=== PATIENT | female | born 1955 | race African-American/Black ===

== ENCOUNTER → 2016-11-15 | Emergency (ER) | payer BC, OTHER ==
[~2016-11-15] MED LIST: FAMOTIDINE 20 MG/50 ML IVPB 50 ML IVPB ONE; ONDANSETRON 4 MG/2 ML VIAL IVPUSH ONE; ONDANSETRON 4 MG/2 ML VIAL ONE; SODIUM CHLORIDE 0.9% 1000 ML INFUS.BAG IV ONE
[2016-11-15 02:30] VITALS: BP 132/85; PULSE 75; TEMP 97.5; BMI 31.9
--- NOTE | 2016-11-15 03:14 | PDOC ---
History of Present Illness - General Chief Complaint: Pain, Acute Stated Complaint: DIARRHEA,ABD PAIN Time Seen by Provider: 11/15/16 02:45 - History of Present Illness Initial Comments: 11/15/16 03:13 CHIEF COMPLAINT: vomiting/diarrhea HISTORY OF PRESENT ILLNESS: An-year-old female with history of hypertension and hypothyroidism presents to ED with vomiting and diarrhea since tonight. Patient states that she had 2 slices of pizza this evening and afterward she had multiple episodes of vomiting and at least 3-4 episodes of diarrhea. She denies fever, chills, rectal bleeding. She denies having any abdominal pain right now. She reports that she was recently diagnosed with a gluten allergy. No recent travel or sick contacts. PAST MEDICAL HISTORY: Denies past medical history FAMILY HISTORY: Denies SOCIAL HISTORY: Denies tobacco, alcohol, illicit drug use. SURGICAL HISTORY: Appendectomy, ablation of fibroids, septoplasty, glaucoma ALLERGIES: shellfish, gluten REVIEW OF SYSTEMS General/Constitutional: Denies fever or chills. Denies weakness, weight change. HEENT: Denies change in vision. Denies ear pain or discharge. Denies sore throat. Cardiovascular: Denies chest pain or shortness of breath. Respiratory: Denies cough, wheezing, or hemoptysis. Gastrointestinal: Vomiting and diarrhea since this evening. Denies rectal bleeding. Genitourinary: Denies dysuria, frequency, or change in urination. Musculoskeletal: Denies joint or muscle swelling or pain. Denies neck or back pain. Skin and breasts: Denies rash or easy bruising. Neurologic: Denies headache, vertigo, loss of consciousness, or loss of sensation. PHYSICAL EXAM General Appearance: Well-appearing, appropriately dressed. No apparent distress , no intoxication. HEENT: EOMI, PERRLA, normal voice. No conjunctival pallor. No photophobia, scleral icterus. Respiratory/Chest: Lungs CTAB. Cardiovascular: RRR. S1, S2. Gastrointestinal/Abdominal: Normal bowel sounds. Abdomen soft, non-distended. No tenderness or rebound tenderness. No organomegaly, pulsatile mass, guarding , hernia, hepatomegaly, splenomegaly. Musculoskeletal/Extremities: Normal inspection. FROM of all extremities, normal capillary refill. No tenderness to extremities, pedal edema, swelling, erythema or deformity. Integumentary: Appropriate color, dry, warm. No cyanosis, erythema, jaundice or rash Neurologic: aircraft maintenance technician II-XII intact. Fully oriented, alert. Appropriate mood/affect. Motor strength 5/5. No appreciable EOM palsy, facial droop or sensory deficit. 11/15/16 04:12 Past History - Past Medical History Allergies/Adverse Reactions: Allergies Allergy/AdvReac Type Severity Reaction Status Date / Time iodine Allergy Intermediate Verified 11/15/16 02:24 shellfish derived Allergy Intermediate Difficulty Verified 11/15/16 02:24 Breathing gluten Allergy Verified 11/15/16 02:24 Home Medications: Ambulatory Orders Amlodipine Besylate [Norvasc -] 5 mg PO DAILY 11/08/13 Aspirin 81 mg PO DAILY 11/08/13 Atenolol/Chlorthalidone [Tenoretic 100/25 Tablet] 1 tab PO DAILY 05/04/14 Spironolactone [Aldactone -] 25 mg PO DAILY 05/04/14 Pantoprazole Sodium [Protonix -] 20 mg PO DAILY #30 tablet.ec 05/05/14 Acetaminophen [Tylenol .Extra-Strength -] 500 mg PO Q6H #20 tablet 09/26/14 Amoxicillin/Potassium Clav [Augmentin 875-125 Tablet] 1 each PO BID #20 tablet 03/20/16 Ondansetron [Zofran *Odt*] 8 mg SL BID PRN #12 od.tablet 11/15/16 GI Disorders: Yes (GERD) HTN: Yes Thyroid Disease: (Hypothyroidism) - Surgical History Abdominal Surgery: (Ablation of uterine fibroids) Appendectomy: Yes - Immunization History Td Vaccination: Yes (2-3 YRS AGO TETANUS TOX) Immunization Up to Date: Yes - Psycho/Social/Smoking Cessation Hx Anxiety: No Suicidal Ideation: No Smoking Status: No Smoking History: Never smoked Have you smoked in the past 12 months: No Number of Cigarettes Smoked Daily: 0 Cigars Per Day: 0 Information on smoking cessation initiated: No Hx Alcohol Use: No Drug/Substance Use Hx: No Substance Use Type: None Hx Substance Use Treatment: No *Physical Exam - Vital Signs Last Vital Signs Temp Pulse Resp BP Pulse Ox 97.5 F L 75 18 132/85 100 11/15/16 02:24 11/15/16 02:24 11/15/16 02:24 11/15/16 02:24 11/15/16 02:24 ED Treatment Course - LABORATORY CBC & Chemistry Diagram: 11/15/16 03:20 11/15/16 03:20 Medical Decision Making - Medical Decision Making 11/15/16 04:17 60 yo F with hx of HTN and hyperthyroidism presents to ED with vomiting and diarrhea x 4 hours. -CBC, CMP, lipase -IVF, Zofran, Pepcid IV 11/15/16 04:23 Labs unremarkable. Patient reassessed; states she is feeling much better and wants to go home. -Zofran ODT PRN vomiting, script sent to pharm Advised patient to take medication as prescribed and follow up with primary care doctor if symptoms persist. Advised patient of signs and symptoms for return to ED. Patient verbalized understanding and agrees to plan. *DC/Admit/Observation/Transfer Diagnosis at time of Disposition: Vomiting and diarrhea - Discharge Dispostion Disposition: HOME Condition at time of disposition: Stable Admit: No - Prescriptions Prescriptions: Ondansetron [Zofran *Odt*] 8 mg SL BID PRN #12 od.tablet PRN Reason: Nausea And/Or Vomiting - Referrals Referrals: Diego Fontana MD [Primary Care Provider] - - Patient Instructions Printed Discharge Instructions: DI for Vomiting -- Adult, DI for Diarrhea and Traveler's Diarrhea -- Adult Additional Instructions: Please take medication as prescribed. Follow up with your primary care doctor if symptoms persist. As discussed, if you develop fever, chills, persistent vomiting that does not cease with medication, severe abdominal pain, or any new or worsening symptoms, please return to the ER.
[2016-11-15 03:34] LABS: BASOPHIL 0.6 % (0-2.0); EOSINOPHIL 1.3 % (0-4.5); MCH 25.2 pg (25.7-33.7); MCHC 33.2 g/dl (32.0-36.0); MEAN CELL VOLUME 75.8 fl (80-96); MEAN PLT VOLUME 11.1 fl (7.5-11.1); PLATELET COUNT 122 K/MM3 (134-434); RDW 14.3 % (11.6-15.6); WHITE BLOOD COUNT 7.4 K/mm3 (4.0-10.0)
[2016-11-15 04:03] LABS: ALBUMIN 3.5 g/dl (3.4-5.0); BILIRUBIN,TOTAL 0.4 mg/dL (0.2-1.0); CREATININE 1.1 mg/dL (0.55-1.02); TOT PROT 7.8 g/dl (6.4-8.2)
== END | disposition home or self-care (01) ==
LOC: JER 02:00
PROC: 3E033GC Introduction of Other Therapeutic Substance into Peripheral Vein, Percutaneous Approach (ICD-10-PCS; principal; 2016-11-15)
DX: R11.10 Vomiting, unspecified (principal); R19.7 Diarrhea, unspecified; I10 Essential (primary) hypertension; E03.9 Hypothyroidism, unspecified; K21.9 Gastro-esophageal reflux disease without esophagitis; Z91.02 Food additives allergy status
CPT/HCPCS: 36415; 80053; 83690; 85025; 99282-25

== ENCOUNTER 2017-10-06 11:29 | Emergency (ER) | payer OTHER ==
[2017-10-06 11:51] VITALS: BMI 32.4
[2017-10-06] MEDS ORDERED: SODIUM CHLORIDE 1,000 ML IV STA (13:35)
[2017-10-06] MEDS ORDERED: ONDANSETRON 4 MG/2 ML VIAL IVPUSH ONE (13:36)
[2017-10-06] MEDS ORDERED: FAMOTIDINE IV 20 MG/12 ML VIAL IVPB ONE (13:36)
--- NOTE | 2017-10-06 13:45 | PDOC ---
History of Present Illness - General Chief Complaint: Chest Pain Stated Complaint: CHEST PAIN,VOMITING Time Seen by Provider: 10/06/17 13:24 History Source: Patient Exam Limitations: No Limitations - History of Present Illness Initial Comments: 10/06/17 13:40 Patient is a 61F with history of HTN, hypothyroidism and glaucoma here today complaining of nausea, vomiting, epigastric burning pain and substernal chest pain. These symptoms started this morning. She's had multiple episodes of non- bloody vomiting. She describes the chest pain as a pressure that gets worse with palpation. She also has associated palpitations. No sick contacts. She believes that she might have eaten some bad chicken soup. She denies history of SI, but has linear scars on both forearms. Denies shortness of breath, diarrhea , constipation. Denies pain with urination. Denies SI/HI. Past History - Past Medical History Allergies/Adverse Reactions: Allergies Allergy/AdvReac Type Severity Reaction Status Date / Time iodine Allergy Intermediate Verified 10/06/17 11:51 shellfish derived Allergy Intermediate Difficulty Verified 10/06/17 11:51 Breathing gluten Allergy Verified 10/06/17 11:51 Home Medications: Ambulatory Orders Amlodipine Besylate [Norvasc -] 5 mg PO DAILY 11/08/13 Aspirin 81 mg PO DAILY 11/08/13 Atenolol/Chlorthalidone [Tenoretic 100/25 Tablet] 1 tab PO DAILY 05/04/14 Spironolactone [Aldactone -] 25 mg PO DAILY 05/04/14 Pantoprazole Sodium [Protonix -] 20 mg PO DAILY #30 tablet.ec 05/05/14 Acetaminophen [Tylenol .Extra-Strength -] 500 mg PO Q6H #20 tablet 09/26/14 Amoxicillin/Potassium Clav [Augmentin 875-125 Tablet] 1 each PO BID #20 tablet 03/20/16 Ondansetron [Zofran *Odt*] 8 mg SL BID PRN #12 od.tablet 11/15/16 CVA: No COPD: No GI Disorders: Yes (GERD) HTN: Yes Thyroid Disease: (Hypothyroidism) - Surgical History Abdominal Surgery: (Ablation of uterine fibroids) Appendectomy: Yes - Immunization History Td Vaccination: Yes (2-3 YRS AGO TETANUS TOX) Immunization Up to Date: Yes - Suicide/Smoking/Psychosocial Hx Smoking Status: No Smoking History: Never smoked Have you smoked in the past 12 months: No Number of Cigarettes Smoked Daily: 0 Cigars Per Day: 0 Information on smoking cessation initiated: No Hx Alcohol Use: No Drug/Substance Use Hx: No Substance Use Type: None Hx Substance Use Treatment: No Review of Systems - Review of Systems Comments:: 10/06/17 13:49 GENERAL/CONSTITUTIONAL: No fever or chills. No weakness. HEAD, EYES, EARS, NOSE AND THROAT: No change in vision. No sore throat. CARDIOVASCULAR: Positive for chest pain. Negative for shortness of breath RESPIRATORY: No cough, wheezing, or hemoptysis. GASTROINTESTINAL: Positive for nausea and vomiting. Negative diarrhea or constipation. GENITOURINARY: No dysuria, frequency, or change in urination. MUSCULOSKELETAL: No joint or muscle swelling or pain. No neck or back pain. SKIN: No rash NEUROLOGIC: Positive for headache. Negative for vertigo, loss of consciousness, or change in strength/sensation. HEMATOLOGIC/LYMPHATIC: No anemia, easy bleeding, or history of blood clots. ALLERGIC/IMMUNOLOGIC: No hives or skin allergy. *Physical Exam - Vital Signs Last Vital Signs Temp Pulse Resp BP Pulse Ox 98.5 F 57 L 20 137/83 100 10/06/17 11:48 10/06/17 11:48 10/06/17 11:48 10/06/17 11:48 10/06/17 11:48 - Physical Exam Comments: 10/06/17 13:50 GENERAL: Awake, alert, and fully oriented, in no acute distress HEAD: No signs of trauma, normocephalic, atraumatic EYES: PERRLA, EOMI, sclera anicteric, conjunctiva clear ENT: Auricles normal inspection, hearing grossly normal, nares patent, oropharynx clear without exudates. Moist mucosa LUNGS: No distress, speaks full sentences, clear to auscultation bilaterally HEART: Regular rate and rhythm, normal S1 and S2, no murmurs, rubs or gallops, peripheral pulses normal and equal bilaterally. Reproducible left sided chest pain. ABDOMEN: Soft, nontender, normoactive bowel sounds. No guarding, no rebound. No masses EXTREMITIES: Normal inspection, Normal range of motion, no edema. No clubbing or cyanosis. NEUROLOGICAL: Cranial nerves II through XII grossly intact. Normal speech, no focal sensorimotor deficits SKIN: Warm, Dry, normal turgor, no rashes or lesions noted. Heart Score/ECG Review - History History: Slightly suspicious - Electrocardiogram EKG: Non specific repolarization disturbance - Age Age: 45-65 - Risk Factors Risk Factors Heart Score: Yes Hx Hypertension, Yes Hx Obesity Based on the list above the patient has:: 1-2 risk factors - Troponin Troponin: </= normal limit - Score Heart Score - Total: 3 ED Treatment Course - LABORATORY CBC & Chemistry Diagram: 10/06/17 14:00 10/06/17 14:00 - RADIOLOGY Radiology Studies Ordered: Category Date Time Status CHEST PA & LAT [RAD] Stat Radiology 10/06/17 13:35 Ordered Medical Decision Making - Medical Decision Making 10/06/17 13:51 61F with history of HTN, hypothyroidism, glaucoma here today with vomiting and chest pain. Vital signs stable and normal. Chest pain is atypical with worsening with palpation, consistent with several episodes of vomiting. PE unremarkable. DDx includes, but is not limited to: gastritis, acs, arrhythmias. Patient has Dr Payne to follow with cardiology. Will do ekg, tropx2, cbc, cmp , mag, cxr. Will treat with zofran and pepcid. 10/06/17 13:58 EKG shows normal sinus rhythm with normal rate and normal axis. Positive via vahe criteria for LVH. Q waves in V1/V2 stable compared to prior EKG. No st elevations/depressions. T-wave inversion in III and general abnormality in aVF. 10/06/17 16:13 CXR shows no acute cardiopulmonary process. 10/06/17 16:13 Laboratory Tests 10/06/17 10/06/17 14:00 14:00 WBC 6.4 Hgb 13.4 Hct 40.9 Plt Count 152 D Potassium 4.5 Creatinine 1.2 H Troponin I < 0.02 CBC normal. K normal. Cr at baseline. Trop negative. 10/06/17 17:07 Patient not in room, suspect elopement. Dr Payne returned call, agrees with plan. Will wait to see if patient returns. 10/06/17 17:22 Laboratory Tests 10/06/17 16:30 Troponin I < 0.02 Trop negative. Patient tolerating PO. Will discharge with PCP and cards follow up. *DC/Admit/Observation/Transfer Diagnosis at time of Disposition: Vomiting, Chest pain - Discharge Dispostion Disposition: HOME Condition at time of disposition: Good Admit: No - Referrals Referrals: Diego Fontana MD [Primary Care Provider] - William Payne MD [Non Staff, Medical] - - Patient Instructions Printed Discharge Instructions: DI for Chest Pain, DI for Vomiting -- Adult Additional Instructions: Please return if you are having any new, worsening or concerning symptoms. 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 - Post Discharge Activity
[2017-10-06] MEDS ORDERED: FAMOTIDINE 20 MG/50 ML IVPB 20 MG/50 ML MG IVPB ONE (13:48)
[2017-10-06] MEDS ORDERED: ONDANSETRON 4 MG/2 ML VIAL ONE (13:49)
--- NOTE | 2017-10-06 14:03 | PDOC ---
Attending Attestation - HPI HPI: 10/06/17 15:49 The patient is a 61 year old female, with a significant past medical history of hypokalemia, who presents to the emergency department with, nausea, vomiting, left sided chest pain, and palpitations. She reports her chest pain to have begun after she had her first episode of emesis. She describes her chest pain as a shooting pain and tender when she touches the area. She denies chest pain when she moves her arm. She denies recent fevers, chills, headache or dizziness. She denies recent nausea, vomit, diarrhea or constipation. She denies recent dysuria, frequency, urgency or hematuria. She denies recent chest pain or shortness of breath. Allergies: iodine, shellfish derived, gluten Past surgical history: None reported. Social history: Nonsmoker. Denies EtOH use and recreational drug use. Primary Care Physician: Dr. Hemal Fontana Division Chief: Dr. William Payne Documentation prepared by Morelia Mccarty, acting as medical investigator for Fawad Orellana MD. - Physicial Exam PE: 10/06/17 15:49 GENERAL: Awake, alert, and fully oriented, in no acute distress HEAD: No signs of trauma EYES: PERRLA, EOMI, sclera anicteric, conjunctiva clear ENT: Auricles normal inspection, hearing grossly normal, nares patent, oropharynx clear without exudates. Moist mucosa NECK: Normal ROM, supple, no lymphadenopathy, JVD, or masses LUNGS: Breath sounds equal, clear to auscultation bilaterally. No wheezes, and no crackles HEART: +Left sided chest pain reproducible. Regular rate and rhythm, normal S1 and S2, no murmurs, rubs or gallops ABDOMEN: Soft, nontender, normoactive bowel sounds. No guarding, no rebound. No masses EXTREMITIES: Normal range of motion, no edema. No clubbing or cyanosis. No cords, erythema, or tenderness NEUROLOGICAL: Cranial nerves II through XII grossly intact. Normal speech, normal gait SKIN: Warm, Dry, normal turgor, no rashes or lesions noted. - Medical Decision Making 10/06/17 3:00pm Call placed to Dr. William Payne's answering service, awaiting call back. 3:30pm Second call placed to Dr. William Payne's answering service, awaiting call back. <Morelia Mccarty - Last Filed: 10/06/17 15:49> - Resident Resident Name: Andrez Soto - ED Attending Attestation I have performed the following: I have examined & evaluated the patient, The case was reviewed & discussed with the resident, I agree w/resident's findings & plan, Exceptions are as noted - Medical Decision Making 10/06/17 14:05 A portion of this note was written by my scribe, under my supervision. Vital Signs Temp Pulse Resp BP Pulse Ox 98.5 F 57 L 20 137/83 100 10/06/17 11:48 10/06/17 11:48 10/06/17 11:48 10/06/17 11:48 10/06/17 11:48 61-year-old female with history of hypertension, hypothyroidism presents with nausea, vomiting and left-sided chest pain. Patient reported waking up with feeling nauseous and vomiting multiple times. Subsequently started to feel some reproducible left-sided chest pain. Denies difficulty breathing states that palpation and movements worsens the left-sided chest pain. Denies exertional component. The patient had felt generally malaise so came into the ED. I suspect the patient's chest pain is less likely to be acute chronic syndrome. However, we'll obtain two troponins. Given her age and history of hypertension. EKG is unchanged from 2015. We'll treat patient's symptoms and obtain labs and reassess. 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 10/06/17 17:09 CBC, BMP 10/06/17 14:00 10/06/17 14:00 CMP Sodium 138 mmol/L (136-145) 10/06/17 14:00 Potassium 4.5 mmol/L (3.5-5.1) 10/06/17 14:00 Chloride 100 mmol/L (98-107) 10/06/17 14:00 Carbon Dioxide 28 mmol/L (21-32) 10/06/17 14:00 Anion Gap 10 (8-16) 10/06/17 14:00 BUN 16 mg/dL (7-18) 10/06/17 14:00 Creatinine 1.2 mg/dL (0.55-1.02) H 10/06/17 14:00 Creat Clearance w eGFR 45.83 (>60) 10/06/17 14:00 Random Glucose 97 mg/dL (74-106) 10/06/17 14:00 Calcium 9.5 mg/dL (8.5-10.1) 10/06/17 14:00 Magnesium 2.0 mg/dL (1.8-2.4) 10/06/17 14:00 Total Bilirubin 0.5 mg/dL (0.2-1.0) D 10/06/17 14:00 AST 42 U/L (15-37) H D 10/06/17 14:00 ALT 37 U/L (12-78) D 10/06/17 14:00 Alkaline Phosphatase 63 U/L (45-117) 10/06/17 14:00 Creatine Kinase 126 IU/L (26-192) 10/06/17 14:00 Troponin I < 0.02 ng/ml (0.00-0.05) 10/06/17 14:00 Total Protein 8.8 g/dl (6.4-8.2) H 10/06/17 14:00 Albumin 3.8 g/dl (3.4-5.0) 10/06/17 14:[address] Soto had spoke with Dr. Redman who agrees with plan for two troponins. <Fawad Orellana - Last Filed: 10/06/17 17:09> Heart Score/ECG Review - History History: Moderately suspicious - Electrocardiogram EKG: Non specific repolarization disturbance - Age Age: 45-65 - Risk Factors Risk Factors Heart Score: Yes Hx Hypertension Based on the list above the patient has:: 1-2 risk factors - Troponin Troponin: </= normal limit - Score Heart Score - Total: 4 #1 ECG reviewed & interpreted by me at: 11:50 10/06/17 13:59 NSR 59, LVH, Q wave v1-v2, no std/walter, TWI III, avF, QTC 388 msec (unchanged from 2014) <Fawad Orellana - Last Filed: 10/06/17 17:09>
[2017-10-06 14:12] LABS: BASO % 0.9 % (0-2.0); EOS % 0.9 % (0-4.5); HEMATOCRIT 40.9 % (32.4-45.2); HEMOGLOBIN 13.4 GM/dL (10.7-15.3); LYMPH % 29.5 % (8-40); MCH 24.8 pg (25.7-33.7); MCHC 32.7 g/dl (32.0-36.0); MEAN CELL VOLUME 75.7 fl (80-96); MEAN PLT VOLUME 10.1 fl (7.5-11.1); NEUT % 60.7 % (42.8-82.8); PLATELET COUNT 152 K/MM3 (134-434); RDW 14.3 % (11.6-15.6); WHITE BLOOD COUNT 6.4 K/mm3 (4.0-10.0)
[2017-10-06 14:24] LABS: INR 0.96 (0.82-1.09); PROTHROMBIN TIME (PATIENT) 10.8 SEC (9.98-11.88)
[2017-10-06 14:43] LABS: ALBUMIN 3.8 g/dl (3.4-5.0); ANION GAP 10 (8-16); BLOOD UREA NITROGEN 16 mg/dL (7-18); CALCIUM 9.5 mg/dL (8.5-10.1); CHLORIDE 100 mmol/L (98-107); CO2 28 mmol/L (21-32); CREATININE 1.2 mg/dL (0.55-1.02); GLUCOSE,RANDOM 97 mg/dL (74-106); SGPT/ALT 37 U/L (12-78); SODIUM 138 mmol/L (136-145); TOT PROT 8.8 g/dl (6.4-8.2)
[2017-10-06 14:46] LABS: ALK PHOS 63 U/L (45-117); BILIRUBIN,TOTAL 0.5 mg/dL (0.2-1.0)
[2017-10-06 14:54] LABS: POTASSIUM 4.5 mmol/L (3.5-5.1); SGOT/AST 42 U/L (15-37)
[2017-10-06 17:24] VITALS: BP 135/94; PULSE 62; TEMP 98.1
--- NOTE | 2017-10-07 11:26 | EKG ---
Test Reason : Blood Pressure : / mmHG Vent. Rate : 059 BPM Atrial Rate : 059 BPM P-R Int : 170 ms QRS Dur : 100 ms QT Int : 392 ms P-R-T Axes : 038 018 -13 degrees QTc Int : 388 ms SINUS BRADYCARDIA VOLTAGE CRITERIA FOR LEFT VENTRICULAR HYPERTROPHY CANNOT RULE OUT SEPTAL INFARCT (CITED ON OR BEFORE 10-DEC-2014) NONSPECIFIC ST AND T WAVE ABNORMALITY ABNORMAL ECG WHEN COMPARED WITH ECG OF 10-DEC-2014 09:23, NO SIGNIFICANT CHANGE WAS FOUND Confirmed by KATY FERREIRA MD ([id number]) on 10/07/2017 11:26:24 AM Referred By: Confirmed By:KATY FERREIRA MD
== END 2017-10-06 17:47 | disposition home or self-care (01) ==
LOC: JER 11:29
PROC: 3E033GC Introduction of Other Therapeutic Substance into Peripheral Vein, Percutaneous Approach (ICD-10-PCS; principal; 2017-10-06)
DX: R07.89 Other chest pain (principal); R11.10 Vomiting, unspecified; I10 Essential (primary) hypertension; E78.00 Pure hypercholesterolemia, unspecified
CPT/HCPCS: 36415; 71046-TC; 80053; 82550; 83735; 84484; 85025; 85610; 87804; 93005; 93010; 96374; 96375; 99283-25

== ENCOUNTER 2024-06-08 02:23 | Emergency (ER) | payer OTHER ==
[2024-06-08 02:33] VITALS: BP 178/87; PULSE 71; RESP 18; TEMP 98.4; BMI 27.4
[2024-06-08] MEDS ORDERED: diphenhydrAMINE HCL 25 MG CAPSULE (FP) PO ONE (03:17)
[2024-06-08] MEDS: diphenhydrAMINE HCL 50 MG CAPSULE PO ONE (03:18)
[2024-06-08] MEDS ORDERED: ALBUTEROL SO4 0.083% IH SOL 2.5 MG/3 ML VIAL.NEB. NEB ONE (03:33)
[2024-06-08] MEDS: ALBUTEROL SO4 0.083% IH SOL 2.5 MG/3 ML VIAL.NEB. NEB ONE (03:34)
== END 2024-06-08 04:02 | disposition home or self-care (01) ==
LOC: JER 02:23
PROC: 3E0F7GC Introduction of Other Therapeutic Substance into Respiratory Tract, Via Natural or Artificial Opening (ICD-10-PCS; principal; 2024-06-08)
DX: R09.81 Nasal congestion (principal); L29.9 Pruritus, unspecified; R06.02 Shortness of breath; T78.40XA Allergy, unspecified, initial encounter
CPT/HCPCS: 94640; 99283-25

== ENCOUNTER 2024-08-21 17:14 | Inpatient (IN) | payer OTHER ==
[2024-08-21 18:42] LABS: BASO % 0.5 % (0-2.0); EOS % 0.9 % (0-4.5); HEMOGLOBIN 13.2 GM/dL (10.7-15.3); LYMPH % 24.3 % (8-40); MCH 24.9 pg (25.7-33.7); MCHC 32.2 g/dl (32.0-36.0); MEAN CELL VOLUME 77.4 fl (80-96); MEAN PLT VOLUME 10.5 fl (7.5-11.1); MONO % 7.9 % (3.8-10.2); NEUT % 66.4 % (42.8-82.8); PLATELET COUNT 167 10^3/uL (134-434); RDW 13.8 % (11.6-15.6); WHITE BLOOD COUNT 7.2 K/mm3 (4.0-10.0)
[2024-08-21 19:03] LABS: CALCIUM 9.8 mg/dL (8.5-10.1)
[2024-08-21 19:04] LABS: ALBUMIN 4.1 g/dl (3.4-5.0); BLOOD UREA NITROGEN 18.2 mg/dL (7-18)
[2024-08-21 19:08] LABS: BILIRUBIN,TOTAL 0.4 mg/dL (0.2-1); TOT PROT 8.3 g/dl (6.4-8.2)
[2024-08-21 19:52] LABS: URINE APPEARANCE CLEAR; URINE BILIRUBIN NEGATIVE (NEGATIVE); URINE COLOR YELLOW; URINE GLUCOSE (UA) NEGATIVE (NEGATIVE); URINE KETONE NEGATIVE (NEGATIVE); URINE LEUK ESTERASE NEGATIVE (NEGATIVE); URINE NITRITE NEGATIVE (NEGATIVE); URINE PROTEIN NEGATIVE (NEGATIVE); URINE UROBILINOGEN 0.2 mg/dL (0.2-1.0)
[2024-08-21 22:46] VITALS: BMI 25.4
[2024-08-21] MEDS ORDERED: ACETAMINOPHEN 325 MG TABLET (FP) PO PRN (23:08)
[2024-08-22 04:24] VITALS: RESP 18
[2024-08-22] MEDS: ENOXAPARIN NA (PORCINE) 40 MG/0.4 ML DISP.SYRIN SQ SCH (09:10)
[2024-08-22] MEDS: VALSARTAN 160 MG TABLET PO SCH (09:10)
[2024-08-22] MEDS: SPIRONOLACTONE 25 MG TABLET PO SCH (09:10)
[2024-08-22] MEDS: amLODIPine BESYLATE 5 MG TABLET (FP) PO SCH (09:11)
[2024-08-22] MEDS: FAMOTIDINE 20 MG TABLET PO SCH (09:12)
[2024-08-22 09:24] LABS: HEMATOCRIT 38.4 % (32.4-45.2); HEMOGLOBIN 12.5 GM/dL (10.7-15.3); MCH 24.9 pg (25.7-33.7); MCHC 32.5 g/dl (32.0-36.0); MEAN CELL VOLUME 76.4 fl (80-96); MEAN PLT VOLUME 10.8 fl (7.5-11.1); PLATELET COUNT 159 10^3/uL (134-434); RBC 5.02 M/mm3 (3.60-5.2); WHITE BLOOD COUNT 5.3 K/mm3 (4.0-10.0)
[2024-08-22 09:37] LABS: CHLORIDE 109 mmol/L (98-107); POTASSIUM 4.2 mmol/L (3.5-5.1); SODIUM 142 mmol/L (136-145)
[2024-08-22 09:41] LABS: ALBUMIN 3.6 g/dl (3.4-5.0); ANION GAP 7 mmol/L (4-13); BLOOD UREA NITROGEN 14.9 mg/dL (7-18); CO2 25 mmol/L (21-32); GLUCOSE,RANDOM 98 mg/dL (74-106); MAGNESIUM 2.3 mg/dL (1.8-2.4)
[2024-08-22 09:44] LABS: BILIRUBIN,TOTAL 0.8 mg/dL (0.2-1); CREATININE 0.9 mg/dL (0.55-1.3); PHOSPHOROUS 3.4 mg/dL (2.5-4.9); SGOT/AST 16 U/L (15-37)
[2024-08-22 09:46] LABS: ALK PHOS 89 U/L (45-117)
[2024-08-22 09:47] LABS: SGPT/ALT 20 U/L (13-61); TOT PROT 7.6 g/dl (6.4-8.2)
[2024-08-22 10:18] LABS: ERYTHROCYTE SEDIMENTATION RATE 16 mm/hr (0-30)
[2024-08-23] MEDS: amLODIPine BESYLATE 10 MG TABLET (FP) PO SCH (09:35)
[2024-08-23 15:55] VITALS: BP 126/83; PULSE 95; TEMP 986
== END 2024-08-23 17:07 | disposition home or self-care (01) | DRG 305 ==
LOC: JER 17:14 → JERBED 20:53 → OBSVTOIN 22:12 → J6S 22:30
PROVIDERS: ADMIT Internal Medicine; ATTEND Internal Medicine
DX: I10 Essential (primary) hypertension (principal); E04.1 Nontoxic single thyroid nodule; E78.5 Hyperlipidemia, unspecified; E78.00 Pure hypercholesterolemia, unspecified; M48.02 Spinal stenosis, cervical region; M50.30 Other cervical disc degeneration, unspecified cervical region; R20.2 Paresthesia of skin; R63.4 Abnormal weight loss; K21.9 Gastro-esophageal reflux disease without esophagitis
CPT/HCPCS: 36415; 70450-TC; 71045-TC-FY; 72125-TC; 73200-TC-RT; 80053; 81003; 83735; 84100; 84439; 84443; 84484; 85025; 85027; 85379; 85651; 86140; 87086; 93005; 93010; 99285-25; G0378

== ENCOUNTER 2024-12-17 06:50 | Day surgery (SDC) | payer OTHER ==
[2024-12-14 14:42] VITALS: BMI 27.8
[2024-12-17 13:57] VITALS: BP 154/72; PULSE 68; RESP 16; TEMP 97.8
[2024-12-17] MEDS ORDERED: ACETAMINOPHEN 500 MG TABLET (FP) ONE (15:23)
[2024-12-17] MEDS: ACETAMINOPHEN 500 MG TABLET (FP) PO PRN (15:31)
== END 2024-12-17 17:41 | disposition home or self-care (01) ==
LOC: JASU-SURG 06:50
PROVIDERS: ATTEND Pain Medicine Pain Medicine
PROC: 3E0R3BZ Introduction of Anesthetic Agent into Spinal Canal, Percutaneous Approach (ICD-10-PCS; 2024-12-17)
PROC: 3E0R33Z Introduction of Anti-inflammatory into Spinal Canal, Percutaneous Approach (ICD-10-PCS; principal; 2024-12-17 12:30)
DX: M54.16 Radiculopathy, lumbar region (principal); M48.061 Spinal stenosis, lumbar region without neurogenic claudication

== ENCOUNTER 2025-02-22 23:32 | Emergency (ER) | payer OTHER ==
[2025-02-22 23:48] VITALS: TEMP 97.9; BMI 29.7
[2025-02-23] MEDS ORDERED: ACETAMINOPHEN 325 MG TABLET (FP) ONE (01:04)
[2025-02-23] MEDS ORDERED: ONDANSETRON *ODT* 4 MG TABLET ONE (01:04)
[2025-02-23] MEDS: ONDANSETRON *ODT* 4 MG TABLET SL ONE (01:17)
[2025-02-23 01:33] LABS: EOSINOPHIL % 0.5 % (0.7-5.8); EOSINOPHILS # 0.03 x10^3/uL (0.04-0.36); RDW 13.4 % (12.4-16.4)
[2025-02-23 01:35] LABS: ABSOLUTE IMMATURE GRANULOCYTES 0.01 x10^3/uL (0.0-0.031); BASOPHILS # 0.04 x10^3/uL (0.01-0.08); HEMATOCRIT 39.4 % (34.1-44.9); HEMOGLOBIN 13.1 g/dL (11.2-15.7); MCHC 33.2 g/dl (32.2-35.5); MEAN CELL VOLUME 75.5 fl (79.4-94.8); MEAN PLT VOLUME 12.7 fl (9.4-12.3); MONOCYTE % 10.9 % (4.7-12.5); PLATELET COUNT 156 x10^3/uL (182-369)
[2025-02-23] MEDS: ACETAMINOPHEN 325 MG TABLET (FP) PO ONE (01:36)
[2025-02-23 01:50] LABS: POTASSIUM 4.3 mmol/L (3.5-5.1)
[2025-02-23 01:52] LABS: BLOOD UREA NITROGEN 30.1 mg/dL (7-18); CALCIUM 10.1 mg/dL (8.5-10.1)
[2025-02-23 01:53] LABS: MAGNESIUM 2.2 mg/dL (1.8-2.4)
[2025-02-23 01:56] LABS: CREATININE 1.4 mg/dL (0.55-1.3)
[2025-02-23 01:57] LABS: BILIRUBIN,TOTAL 0.6 mg/dL (0.2-1); TOT PROT 7.8 g/dl (6.4-8.2)
[2025-02-23 03:01] VITALS: BP 139/67; PULSE 58; RESP 16
[2025-02-23 03:07] LABS: EPI CELLS 3 /uL (0-25.1); HYALINE CASTS 0 /uL (0-3.1); URINE APPEARANCE CLEAR; URINE BACTERIA 13 /uL (0-1359); URINE BILIRUBIN NEGATIVE (NEGATIVE); URINE COLOR YELLOW; URINE GLUCOSE (UA) NEGATIVE (NEGATIVE); URINE KETONE NEGATIVE (NEGATIVE); URINE LEUK ESTERASE TRACE (NEGATIVE); URINE NITRITE NEGATIVE (NEGATIVE); URINE PROTEIN NEGATIVE (NEGATIVE); URINE RBC 1 /uL (0-23.9); URINE UROBILINOGEN 0.2 mg/dL (0.2-1.0); URINE WBC 8 /uL (0-25.8)
== END 2025-02-23 04:47 | disposition home or self-care (01) ==
LOC: JER 23:32
DX: R20.2 Paresthesia of skin (principal); R07.2 Precordial pain; R61 Generalized hyperhidrosis; R20.0 Anesthesia of skin
CPT/HCPCS: 36415; 71045-TC-FY; 80053; 81003; 82962; 83690; 83735; 84484; 85025; 87086; 93005; 93010; 99285-25; Q0162